=== PATIENT | male | born 1995 | race Hispanic/Latino ===

== ENCOUNTER 2017-05-04 07:44 | Emergency (ER) | payer OTHER ==
[~2017-05-04] VITALS: Ht 162.6 cm; Wt 49.9 kg
[~2017-05-04 07:44] MED LIST: CYCLOBENZAPRINE10 M1 PO; IBUPROFEN800 M1 PO; MECLIZINE HCL25 MG PO
[2017-05-04 08:01] LABS: ABSOLUTE BASOPHIL COUNT 0 /CUMM (0.0-0.2); ABSOLUTE EOSINOPHIL COUNT 0.1 /CUMM (0.0-0.7); ABSOLUTE GRANULOCYTE CT 2.6 /CUMM (1.4-6.5); ABSOLUTE LYMPH COUNT 1.3 /CUMM (1.2-3.4); ABSOLUTE MONOCYTE COUNT 0.4 /CUMM (0.10-0.60); BASOPHIL % 0.7 % (0.0-2.0); EOSINOPHIL % 2.3 % (0-5); GRANULOCYTE % 58.3 % (42.2-75.2); HEMATOCRIT 41.5 % (42-52); MEAN CORPUSCULAR HGB 29.4 PG (27.0-31.0); MEAN CORPUSCULAR HGB CONC 33.4 G/DL (33.0-37.0); MEAN PLATELET VOLUME 8.5 FL (7.4-10.4); PLATELET COUNT 280 /CUMM (130-400); RBC DISTRIBUTION WIDTH 12.9 % (11.5-14.5); RED BLOOD CELL CT 4.71 /CUMM (4.70-6.10); WHITE BLOOD CELL COUNT 4.5 /CUMM (4.8-10.8)
--- NOTE | 2017-05-04 08:16 | ED GI/GU/ABDOMINAL COMPLAINT ---
History of Present Illness General Chief Complaint: Abdominal Pain/Flank Pain Stated Complaint: ABD PAIN Source: patient Exam Limitations: no limitations Vital Signs & Intake/Output Vital Signs & Intake/Output Vital Signs Date Time Temp Pulse Resp B/P B/P Pulse O2 O2 Flow FiO2 Mean Ox Delivery Rate 05/04 0922 92 18 108/72 98 Room Air 05/04 0747 97.3 100 20 103/65 98 Room Air Allergies Coded Allergies: NO KNOWN ALLERGIES (NONE) (06/29/16) Triage Note: PT TO ED C/O ABD PAIN, N/V/D X 2-3 DAYS. DENIES S/S. Triage Nurses Notes Reviewed? yes Onset: Abrupt Duration: day(s): (2), constant, continues in ED, getting worse Timing: single episode today Quality/Severity: cramping, moderate Severity Numbers: 6 Location: left upper quadrant Radiation: no radiation Activities at Onset: none Prior Abdominal Problems: none Sexually Active: Yes Last Time You Were Sexual: less than 2 months ago No Modifying Factors: none Modifying Factors: Worsens With: eating, palpation. Associated Symptoms: abdominal pain, diarrhea, loss of appetite, nausea/vomiting HPI: 22-year-old male with no past medical history presents complaining of nausea vomiting diarrhea and abdominal pain for the past 2 days. Patient states that symptoms began about 2 days ago with mild nausea and a progressively gotten worse. He reports pain located near the left upper quadrant of his abdomen. It is worse with eating or drinking and vomiting. He rates the pain as a 7 out of 10 and does not radiate. Patient states that he has been unable to eat or drink anything due to nausea and vomiting. He has tried taking Pepto-Bismol without any improvement. He denies any recent travel, sick contacts, recent antibiotic use, blood in stool blood in the vomit, fevers, back pain, alcohol use, symptoms, or any other associated symptoms. Additionally patient reports he area of crusting itchy lesions under his left nostril. Lesions are present for the past 2 days. He has not tried putting any cream on areas. No rashes anywhere else. He's never had this before. (VISHNU BURTON,TEGAN) Reconcile Medications Albuterol Sulfate (Proair Hfa) 90 MCG HFA.AER.AD 2 PUF INH Q4-6 PRN PRN wheeZing Mupirocin Calcium (Bactroban) 2 % CREAM..G. 1 CARLIE TOP TID IMPETIGO apply to affected area(s) Ondansetron (Zofran Odt) 4 MG TAB.RAPDIS 1 TAB SL TID PRN NAUSEA (HIMANSHU HATFIELD,NGOC Lee) Past History Travel History Traveled to [place] past 21 day No Medical History Any Pertinent Medical History? 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 No (TEGAN MARES PA-C) Review of Systems Review of Systems Constitutional: Reports: no symptoms. EENTM: Reports: no symptoms. Respiratory: Reports: no symptoms. Cardiovascular: Reports: no symptoms. GI: Reports: see HPI, abdominal pain, diarrhea, nausea, vomiting. Genitourinary: Reports: no symptoms. Musculoskeletal: Reports: no symptoms. Skin: Reports: see HPI, lesions, rash. Neurological/Psychological: Reports: no symptoms. Hematologic/Endocrine: Reports: no symptoms. Immunologic/Allergic: Reports: no symptoms. All Other Systems: Reviewed and Negative (TEGAN MARES PA-C) Physical Exam Physical Exam General Appearance: well developed/nourished, no apparent distress, alert, awake Head: atraumatic, normal appearance Eyes: Bilateral: normal appearance, PERRL, EOMI. Ears, Nose, Throat, Mouth: hearing grossly normal, moist mucous membrane, Tympanic normal Neck: normal inspection, supple, full range of motion, normal alignment, no midline tenderness Respiratory: normal breath sounds, chest non-tender, no respiratory distress, lungs clear Cardiovascular: regular rate/rhythm, normal peripheral pulses Peripheral Pulses: 2+ radial (R), 2+ radial (L) Gastrointestinal: normal bowel sounds, soft, no organomegaly, tenderness (luq) Back: normal inspection, normal range of motion, no vertebral tenderness Extremities: normal range of motion, no ligament instability Neurologic/Psych: no motor/sensory deficits, awake, alert, oriented x 3, normal gait, normal mood/affect Skin: intact, normal color, warm/dry, there are honey crusted erythematous lesion located below the left nares. no leions inside the nose. no swelling. Core Measures ACS in differential dx? No Severe Sepsis Present: No Septic Shock Present: No (VISHNU BURTON,TEGAN) Progress Differential Diagnosis: appendicitis, biliary colic, cholecystitis, diverticulitis, gastritis, pancreatitis, peptic ulcer, PUD/GERD, SBO, viral gastroenteritis Plan of Care: Orders Procedure Date/time Status Add-on Test (ER Only) 05/04 823 Active LIPASE 05/04 751 Complete C-REACTIVE PROTEIN 05/04 751 Complete AMYLASE 05/04 751 Complete URINALYSIS 05/04 747 Complete COMPREHENSIVE METABOLIC PANEL 05/04 747 Complete CBC WITHOUT DIFFERENTIAL 05/04 747 Complete Laboratory Tests 05/04/17 075: Anion Gap 11, Estimated GFR > 60, BUN/Creatinine Ratio 11.4, Glucose 92, Calcium 9.7, Total Bilirubin 0.8, AST 21, ALT 50, Alkaline Phosphatase 62, C-Reactive Prot, Quant < 0.5, Total Protein 7.4, Albumin 4.8, Globulin 2.6, Albumin/ Globulin Ratio 1.8, Amylase 44, Lipase 138, CBC w Diff NO MAN DIFF REQ, RBC 4.71 , MCV 88.0, MCH 29.4, RDW 12.9, MPV 8.5, Gran % 58.3, Lymphocytes % 29.3, Monocytes % 9.4 H, Eosinophils % 2.3, Basophils % 0.7, Absolute Granulocytes 2.6, Absolute Lymphocytes 1.3, Absolute Monocytes 0.4, Absolute Eosinophils 0.1, Absolute Basophils 0, PUBS MCHC 33.4, Urine Color YEL, Urine Clarity CLEAR, Urine pH 6.0, Ur Specific [place] 1.025, Urine Protein NEG, Urine Ketones NEG, Urine Nitrite NEG, Urine Bilirubin NEG@ICTO, Urine Urobilinogen 1.0, Ur Leukocyte Esterase NEG, Ur Microscopic EXAM NOT REQUIRED, Urine Hemoglobin NEG, Urine Glucose NEG Patient seen and evaluated. He is nontoxic-appearing. He is afebrile. The left upper quadrant of the abdomen is mildly tender to palpation. No right lower quadrant pain. Patient does not have a white count. We will add on some additional lab tests including amylase lipase and CRP. Patient be given a liter normal saline, IV Zofran and IV Pepcid. Will follow-up on results. Additionally there is what appears to be impetigo located below the left naris. Patient will be treated with topical Bactroban. Discussed with pt about contagiousness of impetigo. 9:08 AM: Blood work is within normal limits. No white count. No signs of dehydration. CRP is negative. Amylase lipase negative. Patient is feeling better after receiving fluids Zofran and Pepcid. Reviewed all results of today' s visit with patient. Patient will be discharged home with Zofran and instructions to rest and increase fluids BrAt diet follow-up with primary care doctor. Patient will also be given topical Bactroban to use 3 times a day for 10 days for treatment of impetigo. Patient is nontoxic-appearing and is in agreement with the plan. I discussed with the patient at length all of their results. I had an extensive conversation regarding need for close follow up with their primary care physician this week as well as return precautions. I answered all of their questions, they feel comfortable with the plan and follow-up care. I discussed with the patient/family the medications that they will receive. I gave them signs and symptoms that could indicate an adverse reaction. I have advised them to limit their activities until they can see how they respond to the medication. (TEGAN MARES PA-C) Initial ED EKG: none (TEGAN MARES PA-C) Departure Departure Disposition: HOME OR SELF CARE Condition: Stable Clinical Impression Primary Impression: Nausea vomiting and diarrhea Secondary Impressions: Impetigo Referrals: KELLY HATFIELD,ABRAHAN (PCP/Family) Additional Instructions: Apply Bactroban cream to lesions below the nose 3x daily for 10 days. Avoid touching kendell area. Keep the area clean and dry. These infections can be contactiousness. Wash hands and disinfect surfaces frequently. Rest and drink plenty of fluids. Eat bland foods such as bananas rice applesauce and toast. Zofran as needed for nausea. Monitor symptoms and return to the emergency department with worsening abdominal pain, fever, blood in stool, unable tolerate fluids or any other concerns. Follow-up with your primary care doctor this coming week. Departure Forms: Customer Survey General Discharge Information Prescriptions: Current Visit Scripts Albuterol Sulfate (Proair Hfa) 2 PUF INH Q4-6 PRN PRN wheeZing #1 INHAL Ondansetron (Zofran Odt) 1 TAB SL TID PRN NAUSEA #10 TAB Mupirocin Calcium (Bactroban) 1 CARLIE TOP TID #30 GM apply to affected area(s) (VISHNU BURTON,TEGAN) PA/CREATIVE WRITING PROFESSOR Co-Sign Statement Statement: ED Attending supervision documentation- [] I saw and evaluated the patient. I have also reviewed all the pertinent lab results and diagnostic results. I agree with the findings and the plan of care as documented in the PA's/CREATIVE WRITING PROFESSOR's documentation. [X] I have reviewed the ED Record and agree with the PA's/CREATIVE WRITING PROFESSOR's documentation. [] Additions or exceptions (if any) to the PAs/CREATIVE WRITING PROFESSOR's note and plan are summarized below: [] (HIMANSHU HATFIELD,NGOC Lee)
[2017-05-04] MEDS ORDERED: ZOFRAN ODT4 M1 SL (09:11)
[2017-05-04] MEDS ORDERED: BACTROBAN15 GM TOP (09:11)
[2017-05-04] MEDS ORDERED: PROAIR HFA8.5 GM INH (09:11)
[2017-05-04 09:22] VITALS: BP 108/72
== END 2017-05-04 09:23 ==
LOC: ERH 07:44
PROVIDERS: Emergency Medicine
DX: R11.2 Nausea with vomiting, unspecified (principal); R19.7 Diarrhea, unspecified; L01.00 Impetigo, unspecified
CPT/HCPCS: 81003; 96361; 96374; 96375; J2405

== ENCOUNTER 2018-04-17 08:43 | Emergency (ER) | payer OTHER ==
[~2018-04-17] VITALS: Ht 162.6 cm; Wt 49.9 kg
[~2018-04-17 08:43] MED LIST changes: +ATIVAN0.5 M1 PO; +BACTROBAN15 GM TOP; +PERCOCET 5-3251 EACH PO; +PROAIR HFA8.5 GM INH; +ZOFRAN ODT4 M1 SL; +ZOFRAN4 M2 PO
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
--- NOTE | 2018-04-17 10:05 | RADIOLOGY REPORT ---
EXAMINATION: XR SHOULDER, RIGHT CLINICAL INFORMATION: Pain after fall. COMPARISON: None TECHNIQUE: AP external rotation, Grashey, scapular Y, and axillary views of the right shoulder. FINDINGS: No acute fracture or dislocation is seen. The glenohumeral joint and acromioclavicular joint are normal. The soft tissues are unremarkable. The imaged right lung is clear. IMPRESSION: Normal right shoulder.
[2018-04-17] MEDS ORDERED: MELOXICAM15 M1 PO (10:19)
[2018-04-17 10:22] VITALS: BP 120/72
== END 2018-04-17 10:22 ==
LOC: ERH 08:43
DX: S49.91XA Unspecified injury of right shoulder and upper arm, initial encounter (principal); Y04.8XXA Assault by other bodily force, initial encounter; Y92.9 Unspecified place or not applicable; Y93.89 Activity, other specified
CPT/HCPCS: 73030-RT